=== PATIENT | male | born 1975 | race Caucasian/White ===

== ENCOUNTER 2021-12-04 11:40 | Observation (INO) ==
[~2021-12-04 11:40] MED LIST: STERILE WATER IRRIGATION IR ONE
[2021-12-04 11:48] VITALS: BMI 44.7
[2021-12-04] MEDS ORDERED: NS 1,000 ML IV 1,000 ML ONE (12:24)
[2021-12-04] MEDS ORDERED: ZOSYN VIAL 3.375 GRAMS IV ONE (12:24)
[2021-12-04] MEDS ORDERED: NS 100 ML IV 100 ML ONE (12:24)
[2021-12-04] MEDS ORDERED: ZOSYN VIAL 3.375 GRAMS 3.375 G in NS 100 ML IV 100 ML IV ONE (12:41)
--- NOTE | 2021-12-04 12:46 | DR.ABDMALE ---
HPI Time seen Time Seen by Provider: 12/04/21 12:39 PCP Primary Care Physician: YULIET LUNSFORD HPI comment HPI Comment: PATIENT IS 46YR OLD MALE IN ER WITH MID ABDOMINAL PAIN RADIATING TO LOWER ABDOMEN INTERMPTTENT FOR SIX WEEKS. PAIN WORSE TODAY. PATIENT IS NAUSEATED AND WEAK. NO FEVER OR DYSURIA, Complaint Chief Complaint Doctors Comments: MID ABDOMINAL Pain ON AND OFF TIMES 6 WEEKS. Chief Complaint:: PT C/O OF HAVING ABD PAIN IN THE MIDDLE WITH N/V THAT HAS BEEN GOING ON AND OFF SINCE . Self Treatment fo Chief Complaint: ULTRAM,ZOFRAN, TORADOL COVID-19 Coronavirus risk:travel/contact w/high risk person: No Has patient experienced Coronavirus symptoms: No Reviewed Nurses Notes Review: Yes Source History provided by:: PATIENT. Mode of arrival Mode of Arrival: Ambulatory Timing Onset of Chief Complaint: 06/24/21 Duration Duration: Intermittent Duration: Weeks Location Location: Periumbilical Severity Severity: Moderate Quality Quality: Sharp Context Onset: Suddenly History of: None Modifying factors Worsening Factors: Food Improving Factors: Lying Still Associated signs and symptoms Associated Signs and Symptoms: Nausea PMH PMH Past Medical History: Yes Past Medical History: Depression and Hypertension Past Medical History Comment: CHOLESTEROL Past Surgical History: Yes Surgical History: Ortho Surgery and Tonsillectomy Past Surgical History Comment: NOSE, SINUS SURGERY Family History History of Family Medical Conditions: Yes Family Medical History: Cancer and Hypertension Social History Does patient currently use any type of tobacco product: No Have you used tobacco products in the last 12 months: No Type of Tobacco Use: None Does any household member use tobacco: No Alcohol Use: Occasionally Do you use any recreational Drugs:: No Lives With: Spouse Lives Where: Home Travel Risk Coronavirus risk:travel/contact w/high risk person: No Has patient experienced Coronavirus symptoms: No Infectious screening In the last 2 months have you had wt loss of >10#?: NO Have you had fever, night sweats or hemotysis?: No Have you traveled outside the country in the last 6 months?: No Isolation: Standard ROS Review of Systems Constitutional: See HPI and Weakness; negative Fever or Fatigue Eyes: No Symptoms Reported and See HPI ENTM: No Symptoms Reported and See HPI; negative Nose Congestion or Mouth Pain Respiratoy: No Symptoms Reported and See HPI; negative Short of Breath or Wheezing Cardiovascular: No Symptoms Reported and See HPI; negative Chest Pain Gastrointestinal/Abdominal: See HPI, Abdominal Pain and Nausea Genitourinary: No Symptoms Reported and See HPI; negative Dysuria, Frequency or Hematuria Neurological: No Symptoms Reported and See HPI; negative Headache, Weakness or Dizziness Musculoskeletal: No Symptoms Reported and See HPI; negative Back Pain Integumentary: No Symptoms Reported and See HPI Hematologic/Lymphatic: No Symptoms Reported and See HPI; negative Easy Bruising Endocrine: No Symptoms Reported and See HPI; negative Increased Thirst or Increased Urine Psychiatric: No Symptoms Reported and See HPI All Other Systems: Reviewed and Negative PE Vital Signs Vital Signs: Temp Pulse Resp BP Pulse Ox O2 Del Method 12/04/21 15:35 18 12/04/21 15:40 97.6 F 75 18 135/62 100 Aerosol Face Tent 12/04/21 15:35 97.6 F 86 18 142/64 100 Aerosol Face Tent 12/04/21 15:30 97.6 F 87 18 132/64 100 Aerosol Face Tent 12/04/21 15:25 97.6 F 90 18 135/65 100 Aerosol Face Tent 12/04/21 15:13 Room Air 12/04/21 13:10 16 12/04/21 13:24 67 12/04/21 13:14 98.8 F 67 18 125/79 97 Room Air 12/04/21 11:41 98.6 F 71 18 111/73 98 Room Air General Limitations: No Limitations General Appearance: Alert and In No Apparent Distress Head Head Exam: Normal Inspection Eyes Eye exam: Normal Appearance ENT ENT Exam: Normal Exam Neck Neck Exam: Normal Inspection and Trachea Midline; negative Tenderness Chest Chest Inspection: Normal Inspection and Symmetric Chest Wall Rise; negative Tenderness Respiratory Respiratory Exam: Normal Lung Sounds Bilat; negative Accessory Muscle Use, Chest Wall Tenderness or Respiratory Distress Respiratory Exam: Bilateral: Clear to Auscultation Cardiovascular Cardiovascular Exam: Regular Rate, Normal Rhythm and Normal Heart Sounds; negative Systolic Murmur or Diastolic Murmur Abdominal Exam Abdominal Exam: Normal Bowel Sounds, Soft and Tenderness Abdominal Tenderness: Diffuse and Moderate Rectal Rectal Exam: Deferred Back Back Exam: Normal Inspection; negative (R) CVA Tenderness or (L) CVA Tenderness Extremeties Extremities Exam: Normal Inspection and Normal Capillary Refill Exam: Male: Deferred Neurologic Neurological Exam: Alert and Oriented X3; negative Motor Sensory Deficit Psychiatric Psychiatric Exam: Normal Affect and Normal Mood Skin Skin Exam: Warm, Dry, Intact and Normal Color COURSE Treatment Treatment: SEE ORDERS DONE WHILE PATIENT WAS IN ER. PATIENT ADMITTED TO HOSPITAL FOR FURTHER MANAGEMENT. Consultation Consultation Comments: DISCUSSED PATIENT WITH DR. KING. HE WILL ADMIT PATIENT. ROR Labs Reviewed Laboratory Results Reviewed?: Yes Result Diagrams: 12/05/21 03:50 12/05/21 03:50 Laboratory: Specimen Type Clean catch urine 12/04/21 13:00 Urine Color [place] (YELLOW) 12/04/21 13:00 Urine Appearance Clear (CLEAR) 12/04/21 13:00 Urine pH 6.0 (5.0 - 8.0) 12/04/21 13:00 Ur Specific [place] 1.020 (1.000-1.030) 12/04/21 13:00 Urine Protein 2+ (NEGATIVE) 12/04/21 13:00 Urine Glucose (UA) Negative (NEGATIVE) 12/04/21 13:00 Urine Ketones 2+ (NEGATIVE) 12/04/21 13:00 Urine Blood Negative (NEGATIVE) 12/04/21 13:00 Urine Nitrite Negative (NEGATIVE) 12/04/21 13:00 Urine Bilirubin 1+ (NEGATIVE) 12/04/21 13:00 Urine Urobilinogen 1+ (NORMAL) 12/04/21 13:00 Ur Leukocyte Esterase 1+ (NEGATIVE) 12/04/21 13:00 Urine RBC 3-5 /HPF (0-3) A 12/04/21 13:00 Urine WBC 3-5 /HPF (0-5) 12/04/21 13:00 Ur Squamous Epith Cells Rare /HPF (NEGATIVE) 12/04/21 13:00 Amorphous Sediment Trace /HPF (NEGATIVE) 12/04/21 13:00 Urine Bacteria Trace /HPF (NEGATIVE) 12/04/21 13:00 Hyaline Casts Rare /LPF (NEGATIVE) 12/04/21 13:00 Urine Mucus Many /HPF (NEGATIVE) 12/04/21 13:00 Ur Culture Indicated? No/not indicated 12/04/21 13:00 SARS-CoV-2 (PCR) Negative (NEGATIVE) 12/04/21 15:31 Tissue Pathology To follow 12/04/21 15:00 XRAY XRAY Interpreted by: Radiologist (REPORT NOTED.) EKG Rate: 66 [place]: Normal Rhythm: NSR Block: None Hypertrophy: None ST: Normal Opioid Opioid Risk Tool Age (Dwayne box if 16-45): No History of Preadolescent Sexual Abuse: No Total: 0 Total Score Risk Category: Low Risk Copyright: Titi WATKINS predicting aberrant behaviors Diagnosis Discharge Problem: Abdominal pain, Acute cholecystitis
[2021-12-04] MEDS ORDERED: LR 1,000 ML IV 1,000 ML IV ONE (12:54)
[2021-12-04] MEDS ORDERED: NS 1,000 ML IV 1,000 ML IV SCH (13:00)
[2021-12-04] MEDS ORDERED: FENTANYL VIAL INJ 250 mcg ONE (13:09)
[2021-12-04] MEDS ORDERED: BRIDION ONE (13:09)
[2021-12-04] MEDS ORDERED: DIPRIVAN VIAL 20 ML ONE (13:09)
[2021-12-04] MEDS ORDERED: VERSED ONE (13:09)
[2021-12-04] MEDS ORDERED: ZEMURON 100 MG VIAL ONE (13:10)
[2021-12-04] MEDS ORDERED: TORADOL 30 MG VIAL ONE (13:10)
[2021-12-04] MEDS ORDERED: ZOFRAN INJ 4 MG VIAL ONE (13:10)
[2021-12-04] MEDS ORDERED: QUELICIN (OR ANECTINE) ONE (13:10)
[2021-12-04 13:13] LABS: BILIRUBIN,URINE 1+ (NEGATIVE); BLOOD/HEMOGLOBIN,URINE NEGATIVE (NEGATIVE); GLUCOSE, URINE NEGATIVE (NEGATIVE); KETONES,URINE 2+ (NEGATIVE); LEUKOCYTE ESTERASE ,URINE 1+ (NEGATIVE); NITRITES,URINE NEGATIVE (NEGATIVE); PROTEIN,URINE 2+ (NEGATIVE); UROBILINOGEN,URINE 1+ (NORMAL)
[2021-12-04 13:27] LABS: APPEARANCE,URINE CLEAR (CLEAR); BACTERIA,URINE TRACE /HPF (NEGATIVE); COLOR,URINE AMBER (YELLOW); SQUAMOUS EPITHELIAL CELL,UR RARE /HPF (NEGATIVE)
[2021-12-04 13:28] LABS: HYALINE CASTS, URINE RARE /LPF (NEGATIVE)
[2021-12-04] MEDS ORDERED: PEPCID 20 MG VIAL ONE (13:38)
[2021-12-04] MEDS ORDERED: REGLAN INJ 10 MG VIAL ONE (13:38)
--- NOTE | 2021-12-04 13:39 | RAD ---
HISTORYRelevant Clinical Information PRE OP : GALLBLADDERSTUDYCHEST, 1 VIEWCOMPARISONNoneFINDINGSThe trachea is midline. The cardiac silhouette is unremarkable. The lungs are clear without focal infiltrate or effusion. The bony thorax is unremarkable.IMPRESSIONNo acute cardiopulmonary disease.Electronically signed by: PATRICK ESPITIA (Dec 04, 2021 13:38:14)
[2021-12-04] MEDS ORDERED: OFIRMEV IV 1000 MG VIAL 1,000 MG/100 ML VIAL IV ONE (13:45)
[2021-12-04] MEDS ORDERED: SUPRANE ONE ×2 (13:46→14:17)
[2021-12-04] MEDS ORDERED: ROBINUL ONE (14:11)
[2021-12-04] MEDS ORDERED: BACTROBAN TOPICAL OINT ONE (15:15)
[2021-12-04] MEDS ORDERED: DILAUDID INJ ONE (15:36)
--- NOTE | 2021-12-04 15:37 | OR.IMMED ---
Immediate Post-Op Note - Immediate Post-Op Note Pre-Op Diagnosis: acute cholecystitis Post-Op Diagnosis: acute cholecystitis with dense adhesions involving the GB ,liver and colon .. distended GB.( had to be emptied . Procedure: laparoscopy, lysis of dense adhesions.. lap harpal and drainage ,, Surgeon/Household Coordinator: Dr Cullen Specimens Removed: GB with contents . Estimated Blood Loss: 50 to 60 cc Drains: Tung Egan Complications: none Condition: Stable (to keep over night for ABT , drain and lab work ..)
[2021-12-04] MEDS ORDERED: BARHEMSYS INJ ONE (15:40)
[2021-12-04] MEDS ORDERED: D5 1/2 NS 1,000 ML 1,000 ML IV SCH (16:00)
[2021-12-04] MEDS: ZOSYN VIAL 3.375 GRAMS 3.375 G in NS 100 ML IV 100 ML IV SCH ×2 (17:49→22:31)
[2021-12-04] MEDS: DILAUDID INJ IVP PRN ×2 (18:05→22:41)
[2021-12-05] MEDS: DILAUDID INJ IVP PRN ×2 (04:00→10:00)
[2021-12-05 04:30] LABS: BASOPHILS % (AUTO) 0.6 % (0.2-1.0); EOSINOPHILS # (AUTO) 0.2 x10^3/uL (0.0-0.2); EOSINOPHILS % (AUTO) 2.3 % (0.9-2.9); HEMATOCRIT 34.3 % (42.0-54.0); HEMOGLOBIN 11.9 g/dL (13.5-18.0); LYMPHOCYTES # (AUTO) 2.2 X10^3/uL (1.3-2.9); MEAN CORPUSCULAR HEMOGLOBIN 29.8 pg (27.0-34.0); MEAN CORPUSCULAR HGB CONC 34.7 g/dL (33.0-35.0); MEAN CORPUSCULAR VOLUME 85.9 fL (80.0-100.0); MEAN PLATELET VOLUME 8.4 fL (7.4-11.0); MONOCYTES # (AUTO) 0.6 x10^3/uL (0.3-0.8); NEUTROPHILS # (AUTO) 3.7 x10^3/uL (2.2-4.8); NEUTROPHILS % (AUTO) 55.1 % (42.0-75.0); RED CELL DISTRIBUTION WIDTH 13.1 % (11.6-16.5); WHITE BLOOD COUNT 6.8 X10^3/uL (3.6-10.0)
[2021-12-05 04:41] LABS: ALANINE AMINOTRANSFERASE 45 Units/L (12-78); ALBUMIN 2.9 g/dL (3.4-5.0); ALKALINE PHOSPHATASE 63 Units/L (46-116); ASPARTATE AMINO TRANSFERASE 36 Units/L (15-37); BLOOD UREA NITROGEN 12 mg/dL (7-18); CARBON DIOXIDE 30.7 mmol/L (21-32); CHLORIDE 102 mmol/L (98-107); COR CA(FOR HYPOALB) 8.9 mg/dL (8.5-10.1); CREATININE 0.97 mg/dL (0.70-1.30); SODIUM 137 mmol/L (136-145); TOTAL PROTEIN 5.6 g/dL (6.4-8.2); eGFR NON BLACK RACES > 60 (>60)
[2021-12-05] MEDS: ZOSYN VIAL 3.375 GRAMS 3.375 G in NS 100 ML IV 100 ML IV SCH (06:53)
[2021-12-05 18:42] VITALS: BP 126/79
== END 2021-12-05 10:45 | disposition home or self-care (01) ==
LOC: ER 11:40 → SURG1 13:25 → MED/SURG 13:25
PROVIDERS: ADMIT Surgery; ATTEND Surgery

== ENCOUNTER 2021-12-08 18:07 | Observation (INO) ==
[2021-12-08] MEDS: ZOSYN VIAL 3.375 GRAMS 3.375 G in NS 100 ML IV 100 ML IV SCH (20:23)
[2021-12-09] MEDS: DILAUDID INJ IVP PRN ×5 (01:23→19:40)
[2021-12-09] MEDS: D5 1/2 NS 1,000 ML 1,000 ML IV SCH ×5 (02:00→22:21)
[2021-12-09] MEDS: ZOSYN VIAL 3.375 GRAMS 3.375 G in NS 100 ML IV 100 ML IV SCH ×5 (05:12→21:25)
[2021-12-09 05:36] VITALS: BMI 42.3
[2021-12-09 06:04] LABS: BASOPHILS # (AUTO) 0.1 X10^3/uL (0.0-0.1); BASOPHILS % (AUTO) 0.6 % (0.2-1.0); EOSINOPHILS # (AUTO) 0.1 x10^3/uL (0.0-0.2); EOSINOPHILS % (AUTO) 1.3 % (0.9-2.9); HEMATOCRIT 39.7 % (42.0-54.0); HEMOGLOBIN 13.6 g/dL (13.5-18.0); LYMPHOCYTES # (AUTO) 2.2 X10^3/uL (1.3-2.9); LYMPHOCYTES % (AUTO) 24.3 % (21.0-51.0); MEAN CORPUSCULAR HEMOGLOBIN 29.7 pg (27.0-34.0); MEAN CORPUSCULAR HGB CONC 34.2 g/dL (33.0-35.0); MEAN CORPUSCULAR VOLUME 86.7 fL (80.0-100.0); MONOCYTES # (AUTO) 0.7 x10^3/uL (0.3-0.8); NEUTROPHILS # (AUTO) 5.9 x10^3/uL (2.2-4.8); NEUTROPHILS % (AUTO) 65.8 % (42.0-75.0); RED BLOOD COUNT 4.58 X10^6/uL (4.7-6.0); RED CELL DISTRIBUTION WIDTH 13.4 % (11.6-16.5)
[2021-12-09 06:19] LABS: ALANINE AMINOTRANSFERASE 319 Units/L (12-78); ALBUMIN 3.2 g/dL (3.4-5.0); ALKALINE PHOSPHATASE 204 Units/L (46-116); AMYLASE 629 Units/L (25-115); ASPARTATE AMINO TRANSFERASE 260 Units/L (15-37); BLOOD UREA NITROGEN 11 mg/dL (7-18); CALCIUM 8.3 mg/dL (8.5-10.1); CARBON DIOXIDE 32.9 mmol/L (21-32); CHLORIDE 105 mmol/L (98-107); COR CA(FOR HYPOALB) 8.9 mg/dL (8.5-10.1); CREATININE 0.94 mg/dL (0.70-1.30); SODIUM 142 mmol/L (136-145); TOTAL PROTEIN 6.3 g/dL (6.4-8.2); eGFR NON BLACK RACES > 60 (>60)
[2021-12-09 06:43] LABS: LIPASE 5411 Units/L (73-393)
--- NOTE | 2021-12-09 10:14 | DR.PROGNOT ---
Hospital Progress Notes - Progress Note for Day of: Progress Note Date: 12/09/21 - Chief Complaint Chief Complaint: still having epigastric pain .. no vomiting today .. Lipase 5411.. Amylase 629.. normal CBC .. afebrile .. - Past Medical Family Social History Past Med/Fam/Surg Hx: No changes since H&P Allergies: Allergies bee venom protein (honey bee) Allergy (Verified 12/08/21 20:25) poison live extract Allergy (Verified 12/08/21 20:25) - Review Of Systems ROS: No change since H&P - Vital Signs Vital Signs: Temperature 98.4 F Pulse Rate [Left] 65 Respiratory Rate 20 Blood Pressure [Left Arm] 126/77 Blood Pressure [Right Arm] 126/79 O2 Sat by Pulse Oximetry 98 - Physical Exam Oriented: Normal Eyes: Normal Ear: Normal Nose: Normal Throat: Normal Respiratory: Normal Cardiovascular: Normal GI:Auscultation: Decreased GI: Tenderness: Epigastric (soft abdomen with moderate epigastric tenderness ..BS hypoactive ) Speech Pattern: Clear, Appropriate - Laboratory and Diagnostics Result Diagrams: 12/09/21 05:50 12/09/21 05:50 Labs: Laboratory WBC 9.0 X10^3/uL (3.6-10.0) 12/09/21 05:50 RBC 4.58 X10^6/uL (4.7-6.0) L 12/09/21 05:50 Hgb 13.6 g/dL (13.5-18.0) 12/09/21 05:50 Hct 39.7 % (42.0-54.0) L 12/09/21 05:50 MCV 86.7 fL (80.0-100.0) 12/09/21 05:50 MCH 29.7 pg (27.0-34.0) 12/09/21 05:50 MCHC 34.2 g/dL (33.0-35.0) 12/09/21 05:50 RDW 13.4 % (11.6-16.5) 12/09/21 05:50 Plt Count 290 X10^3/uL (150.0-450.0) 12/09/21 05:50 MPV 8.0 fL (7.4-11.0) 12/09/21 05:50 Neut % (Auto) 65.8 % (42.0-75.0) 12/09/21 05:50 Lymph % (Auto) 24.3 % (21.0-51.0) 12/09/21 05:50 [place] % (Auto) 8.0 % (0.0-13.0) 12/09/21 05:50 Eos % (Auto) 1.3 % (0.9-2.9) 12/09/21 05:50 Baso % (Auto) 0.6 % (0.2-1.0) 12/09/21 05:50 Neut # (Auto) 5.9 x10^3/uL (2.2-4.8) H 12/09/21 05:50 Lymph # (Auto) 2.2 X10^3/uL (1.3-2.9) 12/09/21 05:50 [place] # (Auto) 0.7 x10^3/uL (0.3-0.8) 12/09/21 05:50 Eos # (Auto) 0.1 x10^3/uL (0.0-0.2) 12/09/21 05:50 Baso # (Auto) 0.1 X10^3/uL (0.0-0.1) 12/09/21 05:50 Absolute Nucleated RBC 0.0 /100WBC 12/09/21 05:50 Sodium 142 mmol/L (136-145) 12/09/21 05:50 Corrected Sodium TNP 12/09/21 05:50 Potassium 3.7 mmol/L (3.5-5.1) 12/09/21 05:50 Chloride 105 mmol/L (98-107) 12/09/21 05:50 Carbon Dioxide 32.9 mmol/L (21-32) H 12/09/21 05:50 BUN 11 mg/dL (7-18) 12/09/21 05:50 Creatinine 0.94 mg/dL (0.70-1.30) 12/09/21 05:50 Est GFR (MDRD) Af Amer > 60 (>60) 12/09/21 05:50 Est GFR (MDRD) Non-Af > 60 (>60) 12/09/21 05:50 Glucose 91 mg/dL (65-99) 12/09/21 05:50 Calcium 8.3 mg/dL (8.5-10.1) L 12/09/21 05:50 Corrected Calcium 8.9 mg/dL (8.5-10.1) 12/09/21 05:50 Total Bilirubin 1.40 mg/dL (0.2-1.0) H 12/09/21 05:50 AST 260 Units/L (15-37) H 12/09/21 05:50 ALT 319 Units/L (12-78) H 12/09/21 05:50 Alkaline Phosphatase 204 Units/L (46-116) H 12/09/21 05:50 Total Protein 6.3 g/dL (6.4-8.2) L 12/09/21 05:50 Albumin 3.2 g/dL (3.4-5.0) L 12/09/21 05:50 Globulin 3.1 g/dL (2.5-4.5) 12/09/21 05:50 Albumin/Globulin Ratio 1.0 Ratio (1.1-2.1) L 12/09/21 05:50 Amylase 629 Units/L (25-115) H 12/09/21 05:50 Lipase 5411 Units/L (73-393) H 12/09/21 05:50 SARS-CoV-2 (PCR) Negative (NEGATIVE) 12/08/21 23:50 - Assessment and Plan 1: acute pancreatitis .. recent acute cholecystitis , s/p lap harpal .. obesity . HTN. lipidemia . same plan .. on clear liquid ..
[2021-12-09] MEDS ORDERED: ATARAX TAB 25 MG PO SCH (10:15)
[2021-12-09] MEDS ORDERED: LEXAPRO ONE (10:33)
[2021-12-09] MEDS ORDERED: ATARAX TAB 25 MG PO PRN (10:44)
[2021-12-09] MEDS: LEXAPRO PO SCH (10:46)
[2021-12-09] MEDS: NORVASC TAB 10 MG PO SCH (10:47)
--- NOTE | 2021-12-09 11:52 | DR.H&P ---
H&P History & Physical for Day of: H&P Date: 12/09/21 Chief Complaint Chief Complaint: abdominal pain, N/V Allergies Allergies Allergy/AdvReac Type Severity Reaction Status Date / Time bee venom protein (honey bee) Allergy Verified 12/08/21 20:25 poison live extract Allergy Verified 12/08/21 20:25 History of Present Illness History of Present Illness: Mr Baptiste is a 46y/o male who presented with worsening abdominal pain, nausea and vomiting. Patient had lap cholecystectomy recently on 12/04/21. He reports epigastric pain with N/V. He has a PMH of HTN, H LD and Depression/anxiety. He has not had any vomiting episodes since yesterday. He states abdominal pain is better. Dr Cullen also consulted. Labs reviewed: elevated LFTs and lipase CXR: no acute process Plan: follow Dr Cullen's recommendations, continue clear liquids. Continue IV fluids and pain control. Continue IV Zosyn. Resume home medications. Monitor AM labs/imaging. Past Medical History Past Medical History: Depression and Hypertension Past Surgical History Surgical History: Cholecystectomy, Tonsillectomy and Other Family History Family Medical History: Coronary Artery Disease and Hypertension Social History Alcohol Use: Occasionally Drug Use: None Prescription drug monitoring program results: PDMP reviewed and no concerns identified Medications Home Medications: bee venom protein (honey bee) Allergy (Verified 12/08/21 20:25) poison live extract Allergy (Verified 12/08/21 20:25) CONTINUE taking the following medications hydroxyzine HCl 25 mg PO HS PRN 12/09/21 [History] ketorolac 10 mg PO Q6H PRN 12/09/21 [History] ondansetron 4 mg TRANSLINGUAL Q4H PRN 12/09/21 [History] Labs Result Diagrams: 12/09/21 05:50 12/09/21 05:50 Labs: Laboratory WBC 9.0 X10^3/uL (3.6-10.0) 12/09/21 05:50 RBC 4.58 X10^6/uL (4.7-6.0) L 12/09/21 05:50 Hgb 13.6 g/dL (13.5-18.0) 12/09/21 05:50 Hct 39.7 % (42.0-54.0) L 12/09/21 05:50 MCV 86.7 fL (80.0-100.0) 12/09/21 05:50 MCH 29.7 pg (27.0-34.0) 12/09/21 05:50 MCHC 34.2 g/dL (33.0-35.0) 12/09/21 05:50 RDW 13.4 % (11.6-16.5) 12/09/21 05:50 Plt Count 290 X10^3/uL (150.0-450.0) 12/09/21 05:50 MPV 8.0 fL (7.4-11.0) 12/09/21 05:50 Neut % (Auto) 65.8 % (42.0-75.0) 12/09/21 05:50 Lymph % (Auto) 24.3 % (21.0-51.0) 12/09/21 05:50 [place] % (Auto) 8.0 % (0.0-13.0) 12/09/21 05:50 Eos % (Auto) 1.3 % (0.9-2.9) 12/09/21 05:50 Baso % (Auto) 0.6 % (0.2-1.0) 12/09/21 05:50 Neut # (Auto) 5.9 x10^3/uL (2.2-4.8) H 12/09/21 05:50 Lymph # (Auto) 2.2 X10^3/uL (1.3-2.9) 12/09/21 05:50 [place] # (Auto) 0.7 x10^3/uL (0.3-0.8) 12/09/21 05:50 Eos # (Auto) 0.1 x10^3/uL (0.0-0.2) 12/09/21 05:50 Baso # (Auto) 0.1 X10^3/uL (0.0-0.1) 12/09/21 05:50 Absolute Nucleated RBC 0.0 /100WBC 12/09/21 05:50 Sodium 142 mmol/L (136-145) 12/09/21 05:50 Corrected Sodium TNP 12/09/21 05:50 Potassium 3.7 mmol/L (3.5-5.1) 12/09/21 05:50 Chloride 105 mmol/L (98-107) 12/09/21 05:50 Carbon Dioxide 32.9 mmol/L (21-32) H 12/09/21 05:50 BUN 11 mg/dL (7-18) 12/09/21 05:50 Creatinine 0.94 mg/dL (0.70-1.30) 12/09/21 05:50 Est GFR (MDRD) Af Amer > 60 (>60) 12/09/21 05:50 Est GFR (MDRD) Non-Af > 60 (>60) 12/09/21 05:50 Glucose 91 mg/dL (65-99) 12/09/21 05:50 Calcium 8.3 mg/dL (8.5-10.1) L 12/09/21 05:50 Corrected Calcium 8.9 mg/dL (8.5-10.1) 12/09/21 05:50 Total Bilirubin 1.40 mg/dL (0.2-1.0) H 12/09/21 05:50 AST 260 Units/L (15-37) H 12/09/21 05:50 ALT 319 Units/L (12-78) H 12/09/21 05:50 Alkaline Phosphatase 204 Units/L (46-116) H 12/09/21 05:50 Total Protein 6.3 g/dL (6.4-8.2) L 12/09/21 05:50 Albumin 3.2 g/dL (3.4-5.0) L 12/09/21 05:50 Globulin 3.1 g/dL (2.5-4.5) 12/09/21 05:50 Albumin/Globulin Ratio 1.0 Ratio (1.1-2.1) L 12/09/21 05:50 Amylase 629 Units/L (25-115) H 12/09/21 05:50 Lipase 5411 Units/L (73-393) H 12/09/21 05:50 SARS-CoV-2 (PCR) Negative (NEGATIVE) 12/08/21 23:50 Review of Systems Constitutional: No Symptoms Reported Eyes: No Symptoms Reported ENT: No Symptoms Reported Respiratory: No Symptoms Reported Cardiovascular: No Symptoms Reported Gastrointestinal: Nausea, Vomiting and Abdominal Pain Genitourinary: No Symptoms Reported Musculoskeletal: No Symptoms Reported Skin: No Symptoms Reported Neurological: No Symptoms Reported Physical Exam Vital Signs: Temperature 98.4 F Pulse Rate [Left] 65 Respiratory Rate 18 Blood Pressure [Left Arm] 126/77 Blood Pressure [Right Arm] 126/79 O2 Sat by Pulse Oximetry 98 Oriented: Normal Eyes: Normal Ear: Normal Nose: Normal Throat: Normal Respiratory: Clear Throughout Cardiovascular: Normal Auscultation: Bowel Sounds: Normal Tenderness: Diffuse, Epigastric, Periumbilical and Mild Skin: Normal Musculoskeletal: Normal Psychiatric: Normal Mood Description: Calm Affect: Normal Speech Pattern: Clear and Appropriate Assessment/Plan (1) Acute pancreatitis: Qualifiers: Acute pancreatitis complication: unspecified Pancreatitis type: unspecified pancreatitis type Qualified Code(s): K85.90 - Acute pancreatitis without necrosis or infection, unspecified Status: Acute (2) S/P laparoscopic cholecystectomy: Status: Acute (3) HTN (hypertension): Qualifiers: Hypertension type: primary hypertension Qualified Code(s): I10 - Essential (primary) hypertension Status: Acute (4) HLD (hyperlipidemia): Qualifiers: Hyperlipidemia type: unspecified Qualified Code(s): E78.5 - Hyperlipidemia, unspecified Status: Acute (5) Depression: Qualifiers: Depression Type: unspecified Qualified Code(s): F32.A - Depression, unspecified Status: Acute Review H&P Reviewed: Yes Patient was examined?: Yes
[2021-12-09] MEDS: LIPITOR TAB 40 MG PO SCH (21:26)
[2021-12-10] MEDS: DILAUDID INJ IVP PRN ×3 (00:10→18:30)
[2021-12-10] MEDS: D5 1/2 NS 1,000 ML 1,000 ML IV SCH ×5 (05:15→19:45)
[2021-12-10 05:21] LABS: BASOPHILS % (AUTO) 0.5 % (0.2-1.0); EOSINOPHILS # (AUTO) 0.2 x10^3/uL (0.0-0.2); EOSINOPHILS % (AUTO) 2.3 % (0.9-2.9); HEMATOCRIT 36.2 % (42.0-54.0); HEMOGLOBIN 12.5 g/dL (13.5-18.0); LYMPHOCYTES # (AUTO) 1.7 X10^3/uL (1.3-2.9); LYMPHOCYTES % (AUTO) 18.2 % (21.0-51.0); MEAN CORPUSCULAR HGB CONC 34.6 g/dL (33.0-35.0); MEAN CORPUSCULAR VOLUME 86.8 fL (80.0-100.0); MEAN PLATELET VOLUME 8.6 fL (7.4-11.0); MONOCYTES # (AUTO) 0.8 x10^3/uL (0.3-0.8); MONOCYTES % (AUTO) 8.2 % (0.0-13.0); NEUTROPHILS # (AUTO) 6.8 x10^3/uL (2.2-4.8); NEUTROPHILS % (AUTO) 70.8 % (42.0-75.0); RED BLOOD COUNT 4.17 X10^6/uL (4.7-6.0); WHITE BLOOD COUNT 9.6 X10^3/uL (3.6-10.0)
[2021-12-10] MEDS: ZOSYN VIAL 3.375 GRAMS 3.375 G in NS 100 ML IV 100 ML IV SCH ×3 (05:30→21:25)
[2021-12-10 05:33] LABS: ALANINE AMINOTRANSFERASE 212 Units/L (12-78); ALKALINE PHOSPHATASE 169 Units/L (46-116); AMYLASE 301 Units/L (25-115); ASPARTATE AMINO TRANSFERASE 104 Units/L (15-37); BLOOD UREA NITROGEN 10 mg/dL (7-18); CARBON DIOXIDE 32.4 mmol/L (21-32); CHLORIDE 101 mmol/L (98-107); COR CA(FOR HYPOALB) 8.8 mg/dL (8.5-10.1); CREATININE 0.83 mg/dL (0.70-1.30); SODIUM 138 mmol/L (136-145); eGFR NON BLACK RACES > 60 (>60)
[2021-12-10 05:42] LABS: LIPASE 1668 Units/L (73-393)
[2021-12-10] MEDS ORDERED: POTASSIUM CHLORIDE LIQ 20 MEQ UDC PO PRN (07:12)
[2021-12-10] MEDS ORDERED: KLOR-CON PO PRN (07:12)
[2021-12-10] MEDS ORDERED: POTASSIUM CHL 40 MEQ/NS 0.45% 500 ML IV PRN (07:12)
[2021-12-10] MEDS ORDERED: POTASSIUM CHL 60 MEQ/NS 0.45% 500 ML IV PRN (07:12)
[2021-12-10] MEDS ORDERED: K-RIDER 10 MEQ/NS 100 ML 10 MEQ/100 ML BAG IV PRN (07:12)
[2021-12-10] MEDS ORDERED: MICRO K EXTEN CAP 10 MEQ PO PRN (07:12)
[2021-12-10] MEDS ORDERED: LEXAPRO ONE (08:32)
[2021-12-10] MEDS: NORVASC TAB 10 MG PO SCH (09:00)
[2021-12-10] MEDS: LEXAPRO PO SCH (09:44)
[2021-12-10] MEDS: K-DUR TAB 20 MEQ PO PRN (09:44)
--- NOTE | 2021-12-10 11:19 | DR.PROGNOT ---
Hospital Progress Notes - Progress Note for Day of: Progress Note Date: 12/10/21 - Chief Complaint Chief Complaint: less epigastric pain .. no vomiting today .. Lipase 1668.. Amylase 301.. normal WBC . afebrile .. - Past Medical Family Social History Past Med/Fam/Surg Hx: No changes since H&P Allergies: Allergies bee venom protein (honey bee) Allergy (Verified 12/08/21 20:25) poison live extract Allergy (Verified 12/08/21 20:25) - Review Of Systems ROS: No change since H&P - Vital Signs Vital Signs: Temperature 99.4 F Pulse Rate [Left] 67 Respiratory Rate 20 Blood Pressure [Left Arm] 141/80 Blood Pressure [Right Arm] 135/82 O2 Sat by Pulse Oximetry 95 - Physical Exam Oriented: Normal Eyes: Normal Ear: Normal Nose: Normal Throat: Normal Respiratory: Normal Cardiovascular: Normal GI:Auscultation: Normal GI: Tenderness: Diffuse, Epigastric, Mild, Periumbilical Skin: Normal Musculoskeletal: Normal Psychiatric: Normal Mood Description: Calm Affect: Normal Speech Pattern: Clear, Appropriate - Laboratory and Diagnostics Result Diagrams: 12/10/21 04:23 12/10/21 04:23 Labs: Laboratory WBC 9.6 X10^3/uL (3.6-10.0) 12/10/21 04:23 RBC 4.17 X10^6/uL (4.7-6.0) L 12/10/21 04:23 Hgb 12.5 g/dL (13.5-18.0) L 12/10/21 04:23 Hct 36.2 % (42.0-54.0) L 12/10/21 04:23 MCV 86.8 fL (80.0-100.0) 12/10/21 04:23 MCH 30.0 pg (27.0-34.0) 12/10/21 04:23 MCHC 34.6 g/dL (33.0-35.0) 12/10/21 04:23 RDW 13.0 % (11.6-16.5) 12/10/21 04:23 Plt Count 256 X10^3/uL (150.0-450.0) 12/10/21 04:23 MPV 8.6 fL (7.4-11.0) 12/10/21 04:23 Neut % (Auto) 70.8 % (42.0-75.0) 12/10/21 04:23 Lymph % (Auto) 18.2 % (21.0-51.0) L 12/10/21 04:23 [place] % (Auto) 8.2 % (0.0-13.0) 12/10/21 04:23 Eos % (Auto) 2.3 % (0.9-2.9) 12/10/21 04:23 Baso % (Auto) 0.5 % (0.2-1.0) 12/10/21 04:23 Neut # (Auto) 6.8 x10^3/uL (2.2-4.8) H 12/10/21 04:23 Lymph # (Auto) 1.7 X10^3/uL (1.3-2.9) 12/10/21 04:23 [place] # (Auto) 0.8 x10^3/uL (0.3-0.8) 12/10/21 04:23 Eos # (Auto) 0.2 x10^3/uL (0.0-0.2) 12/10/21 04:23 Baso # (Auto) 0.0 X10^3/uL (0.0-0.1) 12/10/21 04:23 Absolute Nucleated RBC 0.0 /100WBC 12/10/21 04:23 Sodium 138 mmol/L (136-145) 12/10/21 04:23 Corrected Sodium TNP 12/10/21 04:23 Potassium 3.6 mmol/L (3.5-5.1) 12/10/21 04:23 Chloride 101 mmol/L (98-107) 12/10/21 04:23 Carbon Dioxide 32.4 mmol/L (21-32) H 12/10/21 04:23 BUN 10 mg/dL (7-18) 12/10/21 04:23 Creatinine 0.83 mg/dL (0.70-1.30) 12/10/21 04:23 Est GFR (MDRD) Af Amer > 60 (>60) 12/10/21 04:23 Est GFR (MDRD) Non-Af > 60 (>60) 12/10/21 04:23 Glucose 99 mg/dL (65-99) 12/10/21 04:23 Calcium 8.0 mg/dL (8.5-10.1) L 12/10/21 04:23 Corrected Calcium 8.8 mg/dL (8.5-10.1) 12/10/21 04:23 Magnesium 1.9 mg/dL (1.7-2.9) 12/10/21 04:23 Total Bilirubin 1.20 mg/dL (0.2-1.0) H 12/10/21 04:23 AST 104 Units/L (15-37) H 12/10/21 04:23 ALT 212 Units/L (12-78) H 12/10/21 04:23 Alkaline Phosphatase 169 Units/L (46-116) H 12/10/21 04:23 Total Protein 6.0 g/dL (6.4-8.2) L 12/10/21 04:23 Albumin 3.0 g/dL (3.4-5.0) L 12/10/21 04:23 Globulin 3.0 g/dL (2.5-4.5) 12/10/21 04:23 Albumin/Globulin Ratio 1.0 Ratio (1.1-2.1) L 12/10/21 04:23 Amylase 301 Units/L (25-115) H 12/10/21 04:23 Lipase 1668 Units/L (73-393) H 12/10/21 04:23 SARS-CoV-2 (PCR) Negative (NEGATIVE) 12/08/21 23:50 - Assessment and Plan 1: acute pancreatitis .. recent acute cholecystitis , s/p lap harpal .. obesity . HTN. lipidemia . same plan .. on full liquid .. possible discharge in am ..
--- NOTE | 2021-12-10 12:12 | PCM.PROG ---
Progress Note Progress Note for Day of Date of Exam: 12/10/21 Subjective Subjective: Patient seen at bedside, no events overnight. Patients states he feels a lot better. Denies N/V. His abdominal pain has improved. He has been tolerating clears. He has been ambulating int he room. Labs reviewed: LFTs and lipase trending down Plan: advance diet as per Dr Cullen, can advance to full liquids. Continue pain control and IVF. Continue IV zosyn. Continue home medications. Ambulate as tolerated. Possible discharge tomorrow. Will sign off. Continue care as per surgery. Past Medical Family Social History Past Med/Fam/Surg Hx: No changes since H&P Allergies: Allergies bee venom protein (honey bee) Allergy (Verified 12/08/21 20:25) poison live extract Allergy (Verified 12/08/21 20:25) Review of Systems ROS: No change since H&P Vital Signs and I&O's Vital Signs: Temperature 99.4 F Pulse Rate [Left] 67 Respiratory Rate 20 Blood Pressure [Left Arm] 141/80 Blood Pressure [Right Arm] 135/82 O2 Sat by Pulse Oximetry 95 Intake and Output: Intake & Output 12/07/21 12/08/21 12/09/21 12/10/21 23:59 23:59 23:59 23:59 Intake Total 4595 / 4595 1216 / 1216 Balance 4595 / 4595 1216 / 1216 Physical Exam Oriented: Normal Eyes: Normal Ear: Normal Nose: Normal Throat: Normal Respiratory: Normal Cardiovascular: Normal Auscultation: Bowel Sounds: Normal Tenderness: Epigastric, Mild and Other (dressing intact, no signs of infection, no erythema ) Skin: Normal Musculoskeletal: Normal Psychiatric: Normal Mood Description: Calm Affect: Normal Speech Pattern: Clear and Appropriate Laboratory and Diagnostics Result Diagrams: 12/10/21 04:23 12/10/21 04:23 Labs: Laboratory WBC 9.6 X10^3/uL (3.6-10.0) 12/10/21 04:23 RBC 4.17 X10^6/uL (4.7-6.0) L 12/10/21 04:23 Hgb 12.5 g/dL (13.5-18.0) L 12/10/21 04:23 Hct 36.2 % (42.0-54.0) L 12/10/21 04:23 MCV 86.8 fL (80.0-100.0) 12/10/21 04:23 MCH 30.0 pg (27.0-34.0) 12/10/21 04:23 MCHC 34.6 g/dL (33.0-35.0) 12/10/21 04:23 RDW 13.0 % (11.6-16.5) 12/10/21 04:23 Plt Count 256 X10^3/uL (150.0-450.0) 12/10/21 04:23 MPV 8.6 fL (7.4-11.0) 12/10/21 04:23 Neut % (Auto) 70.8 % (42.0-75.0) 12/10/21 04:23 Lymph % (Auto) 18.2 % (21.0-51.0) L 12/10/21 04:23 [place] % (Auto) 8.2 % (0.0-13.0) 12/10/21 04:23 Eos % (Auto) 2.3 % (0.9-2.9) 12/10/21 04:23 Baso % (Auto) 0.5 % (0.2-1.0) 12/10/21 04:23 Neut # (Auto) 6.8 x10^3/uL (2.2-4.8) H 12/10/21 04:23 Lymph # (Auto) 1.7 X10^3/uL (1.3-2.9) 12/10/21 04:23 [place] # (Auto) 0.8 x10^3/uL (0.3-0.8) 12/10/21 04:23 Eos # (Auto) 0.2 x10^3/uL (0.0-0.2) 12/10/21 04:23 Baso # (Auto) 0.0 X10^3/uL (0.0-0.1) 12/10/21 04:23 Absolute Nucleated RBC 0.0 /100WBC 12/10/21 04:23 Sodium 138 mmol/L (136-145) 12/10/21 04:23 Corrected Sodium TNP 12/10/21 04:23 Potassium 3.6 mmol/L (3.5-5.1) 12/10/21 04:23 Chloride 101 mmol/L (98-107) 12/10/21 04:23 Carbon Dioxide 32.4 mmol/L (21-32) H 12/10/21 04:23 BUN 10 mg/dL (7-18) 12/10/21 04:23 Creatinine 0.83 mg/dL (0.70-1.30) 12/10/21 04:23 Est GFR (MDRD) Af Amer > 60 (>60) 12/10/21 04:23 Est GFR (MDRD) Non-Af > 60 (>60) 12/10/21 04:23 Glucose 99 mg/dL (65-99) 12/10/21 04:23 Calcium 8.0 mg/dL (8.5-10.1) L 12/10/21 04:23 Corrected Calcium 8.8 mg/dL (8.5-10.1) 12/10/21 04:23 Magnesium 1.9 mg/dL (1.7-2.9) 12/10/21 04:23 Total Bilirubin 1.20 mg/dL (0.2-1.0) H 12/10/21 04:23 AST 104 Units/L (15-37) H 12/10/21 04:23 ALT 212 Units/L (12-78) H 12/10/21 04:23 Alkaline Phosphatase 169 Units/L (46-116) H 12/10/21 04:23 Total Protein 6.0 g/dL (6.4-8.2) L 12/10/21 04:23 Albumin 3.0 g/dL (3.4-5.0) L 12/10/21 04:23 Globulin 3.0 g/dL (2.5-4.5) 12/10/21 04:23 Albumin/Globulin Ratio 1.0 Ratio (1.1-2.1) L 12/10/21 04:23 Amylase 301 Units/L (25-115) H 12/10/21 04:23 Lipase 1668 Units/L (73-393) H 12/10/21 04:23 SARS-CoV-2 (PCR) Negative (NEGATIVE) 12/08/21 23:50 Plan (1) Acute pancreatitis: Status: Acute Qualifiers: Acute pancreatitis complication: unspecified Pancreatitis type: unspecified pancreatitis type Qualified Code(s): K85.90 - Acute pancreatitis without necrosis or infection, unspecified (2) S/P laparoscopic cholecystectomy: Status: Acute (3) HTN (hypertension): Status: Acute Qualifiers: Hypertension type: primary hypertension Qualified Code(s): I10 - Essential (primary) hypertension (4) HLD (hyperlipidemia): Status: Acute Qualifiers: Hyperlipidemia type: unspecified Qualified Code(s): E78.5 - Hyperlipidemia, unspecified (5) Depression: Status: Acute Qualifiers: Depression Type: unspecified Qualified Code(s): F32.A - Depression, u nspecified
[2021-12-10] MEDS: LIPITOR TAB 40 MG PO SCH (21:20)
[2021-12-10] MEDS: MAGNESIUM SULFATE 1 GRAM/100 mL PREMIX 1 G/100 ML BAG IV PRN ×2 (21:51→23:10)
[2021-12-11] MEDS: ZOSYN VIAL 3.375 GRAMS 3.375 G in NS 100 ML IV 100 ML IV SCH (05:17)
[2021-12-11] MEDS: D5 1/2 NS 1,000 ML 1,000 ML IV SCH (05:17)
[2021-12-11 06:21] LABS: BASOPHILS # (AUTO) 0.1 X10^3/uL (0.0-0.1); BASOPHILS % (AUTO) 0.9 % (0.2-1.0); EOSINOPHILS # (AUTO) 0.3 x10^3/uL (0.0-0.2); HEMATOCRIT 36.6 % (42.0-54.0); HEMOGLOBIN 12.8 g/dL (13.5-18.0); LYMPHOCYTES # (AUTO) 1.8 X10^3/uL (1.3-2.9); LYMPHOCYTES % (AUTO) 21.3 % (21.0-51.0); MEAN CORPUSCULAR HGB CONC 34.9 g/dL (33.0-35.0); MEAN CORPUSCULAR VOLUME 85.9 fL (80.0-100.0); MEAN PLATELET VOLUME 8.2 fL (7.4-11.0); MONOCYTES # (AUTO) 0.9 x10^3/uL (0.3-0.8); MONOCYTES % (AUTO) 10.2 % (0.0-13.0); NEUTROPHILS # (AUTO) 5.6 x10^3/uL (2.2-4.8); NEUTROPHILS % (AUTO) 64.6 % (42.0-75.0); RED BLOOD COUNT 4.26 X10^6/uL (4.7-6.0); RED CELL DISTRIBUTION WIDTH 13.1 % (11.6-16.5); WHITE BLOOD COUNT 8.7 X10^3/uL (3.6-10.0)
[2021-12-11 06:33] LABS: ALANINE AMINOTRANSFERASE 165 Units/L (12-78); ALBUMIN 2.9 g/dL (3.4-5.0); ALKALINE PHOSPHATASE 153 Units/L (46-116); AMYLASE 93 Units/L (25-115); ASPARTATE AMINO TRANSFERASE 65 Units/L (15-37); BLOOD UREA NITROGEN 8 mg/dL (7-18); CALCIUM 8.4 mg/dL (8.5-10.1); CARBON DIOXIDE 26.8 mmol/L (21-32); CHLORIDE 105 mmol/L (98-107); COR CA(FOR HYPOALB) 9.3 mg/dL (8.5-10.1); CREATININE 0.81 mg/dL (0.70-1.30); LIPASE 376 Units/L (73-393); MAGNESIUM 2.1 mg/dL (1.7-2.9); SODIUM 139 mmol/L (136-145); TOTAL PROTEIN 6.3 g/dL (6.4-8.2); eGFR NON BLACK RACES > 60 (>60)
[2021-12-11] MEDS ORDERED: LEXAPRO ONE (07:35)
[2021-12-11] MEDS: NORVASC TAB 10 MG PO SCH (08:02)
[2021-12-11] MEDS: LEXAPRO PO SCH (08:02)
[2021-12-11] MEDS: K-DUR TAB 20 MEQ PO PRN (08:03)
[2021-12-11 08:27] VITALS: BP 123/72
== END 2021-12-11 11:45 | disposition home or self-care (01) ==
LOC: MED/SURG
PROVIDERS: ADMIT Surgery; ATTEND Surgery